=== PATIENT | male | born 1970 | race Hispanic/Latino ===

== ENCOUNTER 2019-04-15 17:58 | Emergency (ER) | payer SELFPAY ==
[2019-04-15] MEDS ORDERED: LIDOCAINE 2%-EPI 1:200,000 20 ML VIAL IJ ONE (18:57)
== END 2019-04-15 19:31 | disposition home or self-care (01) ==
LOC: EDH 17:58
DX: S01.01XA Laceration without foreign body of scalp, initial encounter (principal); V80.010A Animal-rider injured by fall from or being thrown from horse in noncollision accident, initial encounter; Y93.89 Activity, other specified; Y92.89 Other specified places as the place of occurrence of the external cause; Y99.8 Other external cause status
CPT/HCPCS: 12032; 70450; 71045; 72125; 99284; J3490